=== PATIENT | female | born 1965 | race Hispanic/Latino ===

== ENCOUNTER → 2018-08-07 | Outpatient (CLI) | payer OTHER, MEDICARE ==
[~2018-08-07] VITALS: Ht 165.1 cm; Wt 83.0 kg
[~2018-08-07] MED LIST: APIX5TAB PO; CARB1TAB20 PO; CARB1TAB42 PO; LEVE500T8 PO; ROPI8TAB3 PO; TRAM50TA4 PO
[2018-08-07 14:45] LABS: APPEARANCE,URINE Clear (CLEAR); BILIRUBIN,URINE Negative (NEGATIVE); COLOR,URINE Yellow (YELLOW); GLUCOSE, URINE (UA) Negative (NEGATIVE); KETONES,URINE Negative (NEGATIVE); LEUKOCYTE ESTERASE ,URINE Small (NEGATIVE); NITRATE,URINE Negative (NEGATIVE); OCCULT BLOOD,URINE Negative (NEGATIVE); PROTEIN,URINE Negative (NEGATIVE); UROBILINOGEN,URINE 0.2 mg/dL (0.2-1.0)
[2018-08-07 14:45] LABS: BASOPHILS % (AUTO) 0.5 % (0.0-5.0); EOSINOPHILS % (AUTO) 6.4 % (0.0-8.0); HEMATOCRIT 38.6 % (36-48); LYMPHOCYTES % (AUTO) 32.6 % (21.0-51.0); MEAN CORPUSCULAR HEMOGLOBIN 27.6 pg (27.0-33.0); MEAN CORPUSCULAR HGB CONC 33.5 g/dL (32.0-36.0); MEAN CORPUSCULAR VOLUME 82.4 fL (79-99); MONOCYTES % (AUTO) 5.5 % (3.0-13.0); NUCLEATED RED BLOOD CELLS 0.1 % (0.0-0.19); PLATELET COUNT (AUTO) 188 K/uL (130-400); RED BLOOD CELL COUNT(AUTO) 4.68 MIL/uL (4.00-5.50); RED CELL DISTRIBUTION WIDTH 16.3 % (11.0-15.5); WHITE BLOOD COUNT (AUTO) 4.5 K/uL (4.8-10.8)
[2018-08-07 15:04] LABS: BACTERIA,URINE Few /HPF (None Seen); RBC,URINE 0-1 /HPF (0-1); WBC,URINE 0-1 /HPF (0-1)
[2018-08-07 15:05] LABS: CREATININE 0.7 mg/dL (0.5-1.5); POTASSIUM 4.4 mmol/L (3.5-5.1)
[2018-08-07 15:20] VITALS: BP 107/55
== END | disposition home or self-care (01) ==
LOC: DAH 10:00 → EDSTATUS 13:30
PROVIDERS: ATTEND Surgery
DX: Z01.818 Encounter for other preprocedural examination (principal); C48.0 Malignant neoplasm of retroperitoneum
CPT/HCPCS: 36415; 80048; 81001; 85025

== ENCOUNTER 2018-09-10 22:01 | Emergency (ER) | payer OTHER, MEDICARE ==
[~2018-09-10 22:01] MED LIST changes: -CARB1TAB20 PO; -CARB1TAB42 PO; +ROTI1PAT10 TD; -TRAM50TA4 PO
[2018-09-10] MEDS ORDERED: ONDANSETRON HCL 4 MG/2 ML VIAL ONE (22:36)
[2018-09-10] MEDS ORDERED: SODIUM CHLORIDE 0.9% 1000ML 1,000 ML IV ONE (22:37)
[2018-09-10] MEDS ORDERED: MORPHINE SULFATE 2 MG/ML 1ML SYG ONE (22:37)
[2018-09-10 22:56] LABS: EOSINOPHILS % (AUTO) 5.6 % (0.0-8.0); HEMATOCRIT 28.5 % (36-48); LYMPHOCYTES % (AUTO) 28.2 % (21.0-51.0); MEAN CORPUSCULAR HEMOGLOBIN 27.8 pg (27.0-33.0); MEAN CORPUSCULAR HGB CONC 33.6 g/dL (32.0-36.0); MEAN CORPUSCULAR VOLUME 82.9 fL (79-99); NEUTROPHILS % (AUTO) 59.2 % (40.0-77.0); NUCLEATED RED BLOOD CELLS 0.1 % (0.0-0.19); PLATELET COUNT (AUTO) 240 K/uL (130-400); RED BLOOD CELL COUNT(AUTO) 3.43 MIL/uL (4.00-5.50); RED CELL DISTRIBUTION WIDTH 15.9 % (11.0-15.5); WHITE BLOOD COUNT (AUTO) 6.2 K/uL (4.8-10.8)
[2018-09-10 23:09] LABS: INR 0.99 (0.85-1.15); PARTIAL THROMBOPLASTIN TIME 25.8 SEC (26.3-35.5); PROTHROMBIN TIME 10.4 SEC (9.6-11.6)
[2018-09-10 23:11] LABS: CREATININE 0.8 mg/dL (0.5-1.5); POTASSIUM 4.1 mmol/L (3.5-5.1)
[2018-09-10 23:16] LABS: ALBUMIN 3.2 g/dL (3.5-5.0); BILIRUBIN,TOTAL 0.2 mg/dL (0.2-1.0); TOTAL PROTEIN, SERUM 6.8 g/dL (6.0-8.3)
[2018-09-11 00:32] LABS: APPEARANCE,URINE Clear (CLEAR); BILIRUBIN,URINE Negative (NEGATIVE); COLOR,URINE Dark Yellow (YELLOW); GLUCOSE, URINE (UA) Negative (NEGATIVE); KETONES,URINE Trace mg/dL (NEGATIVE); LEUKOCYTE ESTERASE ,URINE Negative (NEGATIVE); NITRATE,URINE Negative (NEGATIVE); OCCULT BLOOD,URINE Negative (NEGATIVE); PH,URINE 6.5 (5.0-8.0); PROTEIN,URINE Negative (NEGATIVE)
[2018-09-11] MEDS ORDERED: MORPHINE SULFATE 2 MG/ML 1ML SYG ONE (02:11)
== END 2018-09-11 03:41 | disposition home or self-care (01) ==
LOC: EDH 22:01
DX: K59.00 Constipation, unspecified (principal); R10.30 Lower abdominal pain, unspecified; G20 Parkinson's disease; Z85.3 Personal history of malignant neoplasm of breast; Z98.890 Other specified postprocedural states; Z91.041 Radiographic dye allergy status
CPT/HCPCS: 36415; 71045; 74176; 80053; 81003; 82550; 83605; 83690; 84484; 85025; 85610; 85730; 93005; 96374; 96375; 96376; 99285; J2405; J7030

== ENCOUNTER 2019-04-02 08:03 | Day surgery (SDC) | payer OTHER, MEDICARE ==
[~2019-04-02] VITALS: Ht 165.1 cm; Wt 80.7 kg
[~2019-04-02 08:03] MED LIST changes: +LEVE-43 PO; -LEVE500T8 PO; +SODIUM CHLORIDE 0.9% 1000ML 1,000 ML IV ONE
[2019-04-02 08:44] VITALS: BP 155/77
[2019-04-02] MEDS ORDERED: PROPOFOL 10 MG/ML 20ML VIAL IV ONE ×2 (09:17→10:00)
[2019-04-02] MEDS ORDERED: GLYCOPYRROLATE 0.2 MG/ML 5 ML VIAL ONE (10:14)
[2019-04-02 10:27] VITALS: BP 117/67
[2019-04-02 10:32] VITALS: BP 132/73
[2019-04-02 10:37] VITALS: BP 133/76
[2019-04-02 10:42] VITALS: BP 138/70
[2019-04-02 10:47] VITALS: BP 121/78
== END 2019-04-02 11:05 | disposition home or self-care (01) ==
LOC: DAH 08:03 → ENDO 08:03
PROVIDERS: ATTEND Internal Medicine Gastroenterology
DX: Z12.11 Encounter for screening for malignant neoplasm of colon (principal); K22.2 Esophageal obstruction; K29.70 Gastritis, unspecified, without bleeding; G20 Parkinson's disease; G40.909 Epilepsy, unspecified, not intractable, without status epilepticus; Z86.73 Personal history of transient ischemic attack (TIA), and cerebral infarction without residual deficits; Z79.01 Long term (current) use of anticoagulants; Z79.899 Other long term (current) drug therapy; Z90.11 Acquired absence of right breast and nipple; Z85.3 Personal history of malignant neoplasm of breast
CPT/HCPCS: 43239; 43248; A4215 ×3; A4221; A4222; A4223; A4606; A4620; A4663; G0121; J2704 ×2; J3490; J7030